=== PATIENT | female | born 1985 | race Hispanic/Latino ===

== ENCOUNTER 2020-09-19 14:35 | Outpatient (CLI) | payer OTHER ==
--- NOTE | 2020-09-19 15:33 | ULT ---
Complete obstetrical ultrasound INDICATION: Evaluate anatomy TECHNIQUE: Grayscale, M-mode Doppler and Doppler images were obtained of the abdomen and pelvis to ev aluate the patient's known . COMPARISON: None. FINDINGS: Number of gestations: Single. Presentation: Transverse with the head to the maternal right. Placental location: Anterior and fundal Previa: No evidence for previa. Cervical length: 4.6 cm without evidence of funneling. MYKEL: 15.87 cm. heart rate: 142 bpm. Biparietal diameter: 4.84cm, 20 weeks and 5 days, Not calculated.. Head circumference: 17.40 cm, 20 weeks and 0 days, Not calculated. Abdominal circumference: 14.41 cm, 19 weeks and 6 days, Not calculated. Femoral length: 3.33cm, 20 weeks and 3 days, Not calculated. Estimated weight: 230 g +/- 48g 0 lbs. 12 oz. +/- 2 ounces, 41st percentile SURVEY: head: Normal appearing. Cerebellum: Normal appearing. Cisterna magna: Normal appearing. Lateral ventricles: Normal appearing. 4 chamber heart: Normal appearing.. Stomach: Normal appearing. Kidneys: Normal appearing. Cord insertion: Normal appearing. Bladder: Normal appearing. Spine: Normal appearing. Lips and nose: Normal appearing. Extremities: Normal appearing. Three-vessel CORD: Normal appearing. The average gestational age by ultrasound is 20 weeks and 2 dayswith estimated due date of February 04. The estimated dates by clinical data is 20 weeks and 1 daywith estimated due date of February 05, 2021. IMPRESSION: 1. Single live intrauterine gestation with size and dates as above. 2. survey appeared within normal limits.
== END 2020-09-19 14:36 | disposition home or self-care (01) ==
LOC: BICULT 14:35
PROVIDERS: ATTEND Family Medicine
DX: Z34.82 Encounter for supervision of other normal pregnancy, second trimester (principal); Z3A.20 20 weeks gestation of pregnancy
CPT/HCPCS: 76805